=== PATIENT | male | born 1965 | race Caucasian/White ===

== ENCOUNTER 2017-07-24 07:05 | Emergency (ER) | payer BC ==
[2017-07-24 07:19] VITALS: BP 153/86
--- NOTE | 2017-07-24 15:29 | UC ---
Ezio New Tiffany, scribed for Mini Gupta DO on 07/24/17 at 0735 . Dental HPI - HPI Summary HPI Summary: The patient is a 52 year old M presenting to [facility] with a chief complaint of left lower jaw pain since four days ago, worse since yesterday. The pain is described as pressure. The patient rates the pain 9/10 in severity. Symptoms aggravated by nothing. Symptoms alleviated by nothing. Patient reports abscess near his left lower teeth. Patient denies fever, chills, diaphoresis, sore throat, ear ache, congestion, chest pain, and shortness of breath. The patient was prescribed amoxicillin and naproxen yesterday by his primary care provider. He complains that the antibiotics are not working. - History of Current Complaint Chief Complaint: UCDentalProblem Stated Complaint: DENTAL COMPLAINT Time Seen by Provider: 07/24/17 07:21 Hx Obtained From: Patient Onset/Duration: Lasting Days - Four days, Still Present, Worse Since - Yesterday Severity: Severe Pain Intensity: 9 Pain Scale Used: 0-10 Numeric Aggravating Factor(s): Nothing Alleviating Factor(s): Nothing - Allergies/Home Medications Allergies/Adverse Reactions: Allergies Allergy/AdvReac Type Severity Reaction Status Date / Time No Known Allergies Allergy Verified 06/07/14 18:58 Home Medications: Home Medications Amoxicillin PO (*) [Amoxicillin 500 MG CAP*] 500 mg PO TID 07/24/17 [History Confirmed 07/24/17] Naproxen Sodium [Naproxen Sodium 220 mg] 220 mg PO 07/24/17 [History] PMH/Surg Hx/FS Hx/Imm Hx Previously Healthy: No - Lymphadenopathy Other Respiratory History: NEGATIVE: COPD - Surgical History Surgical History: Yes Surgery Procedure, Year, and Place: rods to rt leg - Family History Known Family History: Positive: Cardiac Disease - Father, Diabetes - Social History Alcohol Use: Daily Substance Use Type: None Smoking Status (MU): Never Smoked Tobacco Review of Systems Constitutional: Negative - fever, chills, diaphoresis ENT: Negative - sore throat, ear ache, congestion, Dental Pain - Left lower jaw , abscess near his left lower teeth Respiratory: Negative - Shortness of breath Cardiovascular: Negative - Chest pain All Other Systems Reviewed And Are Negative: Yes Physical Exam Triage Information Reviewed: Yes Vital Signs: Initial Vital Signs Temp 98.3 F 07/24/17 07:14 Pulse 78 07/24/17 07:14 Resp 18 07/24/17 07:14 BP 153/86 07/24/17 07:14 Pulse Ox 99 07/24/17 07:14 Vital Signs Reviewed: Yes - Additional Comments Appearance: Well-Appearing, No Pain Distress, Well-Nourished Eyes: conjunctiva clear, no discharge ENT: Hearing grossly normal, no muffled/hoarse voice. TMs normal, negative tonsillar swelling, negative tonsillar exudate, negative trismus. Pharynx is normal. Negative for woody edema. Dental: Swelling over the left mandible corresponding with tooth #3. Tooth #3 is fractured and tender to palpation Neck: Normal, Supple Respiratory/Lung Sounds: Lungs clear, Normal breath sounds, No respiratory distress, No accessory muscle use Cardiovascular: RRR, No murmur Musculoskeletal: Normal Neurological: Alert, muscle tone normal Psychiatric:Normal, age appropriate behavior Skin: Normal, Warm, Dry, Normal color Dental Complaint Course/Dx - Course Course Of Treatment: Patient will be discharged and follow up from PCP if needed. He was advised to continue taking his prescribed antibiotics, to replenish his body with "good bacteria," and to make an appointment with his dentist. The patient is agreeable with this plan. Medications reviewed. High blood pressure noted. - Differential Dx/Diagnosis Provider Diagnoses: Dental abscess, Elevated blood pressure without diagnosis of hypertension Discharge - Discharge Plan Condition: Stable Disposition: HOME Patient Education Materials: Dental Abscess (ED) Referrals: Kurt WEBB,Farooq Castaneda [Primary Care Provider] - If Needed Additional Instructions: Since antibiotics usually need two days to become effective, give the antibiotics another day to work. So continue Amoxicillin. AMOXICILLIN: Amoxicillin is a member of the penicillin family. It covers the germs likely to cause ear, bronchial, and urinary infections better than plain penicillin. Amoxicillin can be taken without regard to meals. Nausea after taking the medication is rare, but can occur. Diarrhea can occur, particularly in small children. Vaginal yeast infections and oral thrush in infants are also common. Contact your physician if these problems occur. Allergy to penicillins is common. If you have had an allergic reaction to any drug of the penicillin family, you should never take any other penicillin. Notify your doctor at once if you develop hives, itching, swelling, faintness, or shortness of breath. Less serious side effects can include nausea or diarrhea. ANYTIME YOU TAKE AN ANTIBIOTIC, IT IS IMPORTANT TO REPLENISH THE BODY'S SUPPLY OF "GOOD BACTERIA." YOU CAN GET GOOD BACTERIA FROM HIGH QUALITY CULTURED FOODS SUCH LOCAL YOGURT, SOUR KRAUT, ELYSSA ARABELLA, NATURALLY FERMENTED PICKLES AND PROBIOTIC DRINKS. YOU CAN ALSO GET GOOD BACTERIA FROM A PROBIOTIC SUPPLEMENT. If your current symptoms worsen, or if you develop fever, chills, mental status changes, hardness crossing the midline under your chin, any pressure on your airway and/or shortness of breath, then go to emergency room immediately. YOU WILL NEED TO FOLLOW UP WITH YOUR DENTIST. PLEASE CALL TUESDAY MORNING TO MAKE AN APPOINTMENT. The documentation as recorded by the Ezio cardoso Tiffany accurately reflects the service I personally performed and the decisions made by , Mini Gupta DO.
== END 2017-07-24 07:54 | disposition home or self-care (01) ==
LOC: UCEAST 07:05
DX: K04.7 Periapical abscess without sinus (principal); R03.0 Elevated blood-pressure reading, without diagnosis of hypertension
CPT/HCPCS: 99211; G0463

== ENCOUNTER 2019-02-24 15:00 | Emergency (ER) | payer BC ==
--- NOTE | 2019-02-24 15:37 | UC ---
Eye Complaint HPI - HPI Summary HPI Summary: 54 y/o male presents to the urgent care c/o RT eye w/ a red area in the conjunctiva, he noticed this morning. Pt reports he works outside and sometimes he gets dust in his eye. Yesterday morning his Rt eye was mildly red , but last night he ate a fish at a restaurant and it tasted bad that he had an episode of vomiting. After that his eye turned was more red. This morning his noticed the red area in his eye was bigger. He feels mild discomfort, but not eye pain and no eye discharge or visual changes or photophobia. Pt also denies fever, HAMILTON, dizziness, SOB, chest pain, abdominal pain, N/V/D today. - History of Current Complaint Stated Complaint: EYE IRRITATION Time Seen by Provider: 02/24/19 15:35 Hx Obtained From: Patient Onset/Duration: Sudden Onset, Lasting Days - 1 day, Still Present, Worse Since - this morning Timing: Constant Severity Initially: Mild Severity Currently: Mild Pain Intensity: 0 Pain Scale Used: 0-10 Numeric Location of Injury: Conjunctiva - RT conjunctiva red area Character: Dull Aggravating Factor(s): Nothing Associated Signs And Symptoms: Positive: Drainage (Clear). Negative: Photophobia, Drainage (Purulent), Vision Impairment Bilateral, Fever, Swelling - Risk Factors Penetrating Injury Risk Factor: Negative Globe Rupture Risk Factors: Negative Acute Glaucoma Risk Factors: Negative - Allergies/Home Medications Allergies/Adverse Reactions: Allergies Allergy/AdvReac Type Severity Reaction Status Date / Time No Known Allergies Allergy Verified 02/24/19 15:44 PMH/Surg Hx/FS Hx/Imm Hx Previously Healthy: Yes Endocrine History: Dyslipidemia - diet control - Surgical History Surgical History: Yes Surgery Procedure, Year, and Place: rods to rt leg - Family History Known Family History: Positive: Cardiac Disease - Father, Diabetes - Social History Occupation: Employed Full-time Lives: With Family Alcohol Use: Daily Substance Use Type: None Smoking Status (MU): Never Smoked Tobacco Review of Systems All Other Systems Reviewed And Are Negative: Yes Constitutional: Positive: Negative Skin: Positive: Negative Eyes: Positive: Drainage - clear, Eye Redness - RT eye red area. Negative: Blurred Vision, Diplopia, Photophobia ENT: Positive: Negative Respiratory: Positive: Negative Cardiovascular: Positive: Negative Gastrointestinal: Positive: Negative Genitourinary: Positive: Negative Motor: Positive: Negative Neurovascular: Positive: Negative Musculoskeletal: Positive: Negative Neurological: Positive: Negative Psychological: Positive: Negative Is Patient Immunocompromised?: No Physical Exam - Summary Physical Exam Summary: Vital Signs Reviewed: Yes General: Well appearing, well nourished male in no apparent pain distress Eyes: RT eye medial aspect w/ a subconjunctiva hemorrage and clear discharge. B /L PERRLA, EOMI w/o any nystagmus or strabismus. Fundi appears benign. Disks are well delineated. There are no hemorrhages or exudates. Visual acuity is 20 /20 bilaterally, and visual andrade are within normal limits. No foreign body under eyelids observed with naked eye. ENT: Positive: Normal ENT inspection, Hearing grossly normal, Pharynx normal, Nasal congestion, Nasal drainage - clear, TMs normal - B/L external ear canal clear , TM's WNL. Negative: Tonsillar swelling, Tonsillar exudate Neck: Positive: Supple, Nontender, No Lymphadenopathy Respiratory: Positive: Chest nontender, Lungs clear, Normal breath sounds, No respiratory distress Cardiovascular: Positive: RRR, No Murmur, Pulses Normal, Brisk Capillary Refill Abdomen Description: Positive: Nontender, No Organomegaly, Soft. Negative: CVA Tenderness (R), CVA Tenderness (L) Bowel Sounds: Positive: Present Musculoskeletal: Positive: Strength Intact, ROM Intact, No Edema Neurological Exam: Normal Psychological Exam: Normal Skin Exam: Normal Triage Information Reviewed: Yes Eye Complaint Course/Dx - Course Course Of Treatment: 54 y/o male presents to the urgent care c/o RT eye w/ a red area in the conjunctiva, he noticed this morning. Pt reports he works outside and sometimes he gets dust in his eye. Yesterday morning his Rt eye was mildly red , but last night he ate a fish at a restaurant and it tasted bad that he had an episode of vomiting. After that his eye turned was more red. This morning his noticed the red area in his eye was bigger. He feels mild discomfort, but not eye pain and no eye discharge or visual changes or photophobia. Pt also denies fever, HAMILTON, dizziness, SOB, chest pain, abdominal pain, N/V/D today. Hx obtained. LF eye with conjunctiva clear, sclera is white. RT eye medial aspect w/ a subconjunctiva hemorrage and clear discharge. B/L PERRLA, EOMI w/o any nystagmus or strabismus. Fundi appears benign. Disks are well delineated. There are no hemorrhages or exudates. Visual acuity is 20/20 bilaterally, and visual andrade are within normal limits. No foreign body under eyelids observed with naked eye. 2 drops of Tetracaine optha drops placed on Pts left eye, then irrigated with saline drops to flush any foreign particles, then fluorescein instillation and examination with a UV lamp. No corneal abrasion observed. No foreign body identified. After procedure Pt felt better. Pt's explained the subconjunctival hemorrage was probably due to his vomiting episode and elevated BP. Pt's BP is elevated today advised to decrease salt in diet, monitor BP and f/u with PCP for further management. Pt advised to f/u at [facility] ophthalmology center or his PCP inf symptoms do not improve. D/C instrucitons explained. Pt understood and agreed w/ plan of care. - Differential Dx/Diagnosis Differential Diagnosis/HQI/PQRI: Conjunctivitis, Corneal Abrasion, Periorbital Cellulitis, Orbital Cellulitis, Uveitis Provider Diagnosis: Subconjunctival hemorrhage of right eye, Elevated BP without diagnosis of hypertension Discharge ED - Sign-Out/Discharge Documenting (check all that apply): Patient Departure - d/C home All imaging exams completed and their final reports reviewed: No Studies - Discharge Plan Condition: Stable Disposition: HOME Patient Education Materials: Subconjunctival Hemorrhage (ED) Referrals: Kurt WEBB,Farooq Castaneda [Primary Care Provider] - 3 Days Allan Barrow MD [Medical Doctor] - 3 Days Additional Instructions: 1-Please apply artificial tears drops to keep your eye lubricated. Subconjunctival hemorrage will take abut 1-2 weeks to completely resolve. Avoid heavy exercise or straining yourself 2-If you do not improve or if symptoms worsen w/ eye pain and eye discharge please f/u with acetylene operator Dr Barrow for further evaluation and treatment 3-Your BP is elevated today. Please take your BP medications and decrease salt in your diet, monitor BP and if it continues to be elevated please f/u with your PCP for further management. If you develop chest pain, dizziness, visual disturbances, SOB, or severe HAMILTON please go immediately to the ER for further management - Billing Disposition and Condition Condition: STABLE Disposition: Home
[2019-02-24 15:43] VITALS: BP 154/91
[2019-02-24] MEDS ORDERED: Tetracaine 0.5% OPTH.SOL 4 ML* 1 DROP BTL RIGHT EYE ONE (16:04)
[2019-02-24] MEDS ORDERED: Fluorescein Sodium TOPICAL* 1 MG TEST STRIP OPHTHALMIC ONE (16:04)
[2019-02-24] MEDS ORDERED: Eye Irrigation Solution 30 ML BOTTLE RIGHT EYE ONE (16:04)
== END 2019-02-24 16:30 | disposition home or self-care (01) ==
LOC: UCEAST 15:00
DX: H11.31 Conjunctival hemorrhage, right eye (principal); R03.0 Elevated blood-pressure reading, without diagnosis of hypertension
CPT/HCPCS: 99211; A9270-GY; G0463